=== PATIENT | female | born 1955 | race Asian ===

== ENCOUNTER 2019-01-21 13:46 | Emergency (ER) | payer OTHER ==
[~2019-01-21] VITALS: Ht 167.6 cm; Wt 60.3 kg
[2019-01-21 16:35] VITALS: BP 104/72
== END 2019-01-21 16:35 | disposition home or self-care (01) ==
LOC: ED 13:46
DX: R51 Headache (principal); F41.9 Anxiety disorder, unspecified; E78.5 Hyperlipidemia, unspecified; Z90.89 Acquired absence of other organs; Z98.890 Other specified postprocedural states
CPT/HCPCS: J1885; J2060; J2550; J7030

== ENCOUNTER 2019-01-22 07:25 | Inpatient (IN) | payer OTHER ==
[~2019-01-22] VITALS: Ht 162.6 cm; Wt 65.2 kg
[2019-01-22 08:14] LABS: BASOPHIL % 0.4 % (0-2); PLATELET COUNT 151 x10^3mcL (130-400); RED CELL DISTRIBUTION WIDTH 14.3 % (11.5-14.5)
[2019-01-22 08:22] LABS: CALCIUM 8.4 mg/dL (8.5-10.1); CARBON DIOXIDE 23.4 mmol/L (21-32); CHLORIDE SERUM 99 mmol/L (98-107); CREATININE SERUM 0.9 mg/dL (0.6-1.0); GFR1 > 60 mL/min; GLUCOSE SERUM 123 mg/dL (74-106); POTASSIUM SERUM 3.8 mmol/L (3.5-5.1); SODIUM SERUM 132 mmol/L (136-145)
[2019-01-22 08:32] LABS: ALBUMIN 2.9 g/dL (3.4-5.0); ALKALINE PHOSPHATASE 187 U/L (46-116); ALT/SGPT 760 U/L (14-59); BILIRUBIN TOTAL 1.04 mg/dL (0.20-1.00); TOTAL PROTEIN, SERUM 6.7 g/dL (6.4-8.2)
[2019-01-22 08:33] LABS: AST/SGOT 1292 U/L (15-37)
[2019-01-22 10:35] LABS: TOTAL PROTEIN CSF 38.1 mg/dL (15-45)
[2019-01-22 12:42] LABS: APPEARANCE CSF CLEAR; COLOR CSF COLORLESS
[2019-01-22 12:43] LABS: RBC CSF 0 /cumm (0)
[2019-01-22 13:01] LABS: COLOR CSF PINK
[2019-01-22 13:02] LABS: APPEARANCE CSF CLEAR
[2019-01-22 13:03] LABS: RBC CSF 0 /cumm (0); WBC CSF 90 /cumm (0-5)
[2019-01-22 13:07] LABS: WBC CSF 0 /cumm (0-5)
[2019-01-22 14:08] LABS: LYMPHOCYTE CSF 52 % (40-80); MONOCYTE CSF 28 %
[2019-01-22 14:15] LABS: LYMPHOCYTE CSF 52 % (40-80); MONOCYTE CSF 28 %
[2019-01-22 15:11] LABS: CHOLESTEROL/HDL RATIO 2.6; PHOSPHOROUS 1.9 mg/dL (2.5-4.9)
[2019-01-22 15:15] VITALS: BP 94/43
[2019-01-22 19:55] VITALS: BP 99/44
[2019-01-22 21:05] VITALS: BP 96/47
[2019-01-22 22:13] VITALS: BP 84/42
[2019-01-22 23:00] VITALS: BP 86/56
[2019-01-23 03:08] VITALS: BP 115/71
[2019-01-23 05:14] LABS: BASOPHIL % 0.2 % (0-2); PLATELET COUNT 146 x10^3mcL (130-400)
[2019-01-23 05:27] LABS: RED CELL DISTRIBUTION WIDTH 14.6 % (11.5-14.5)
[2019-01-23 05:35] LABS: CALCIUM 8.1 mg/dL (8.5-10.1); CARBON DIOXIDE 22.3 mmol/L (21-32); CHLORIDE SERUM 105 mmol/L (98-107); CREATININE SERUM 0.7 mg/dL (0.6-1.0); GFR1 > 60 mL/min; GLUCOSE SERUM 114 mg/dL (74-106); MAGNESIUM 1.5 mg/dL (1.8-2.4); PHOSPHOROUS 2.1 mg/dL (2.5-4.9); POTASSIUM SERUM 3.5 mmol/L (3.5-5.1); SODIUM SERUM 136 mmol/L (136-145)
[2019-01-23 07:55] VITALS: BP 116/56
[2019-01-23 10:44] VITALS: Ht 162.6 cm; Wt 65.2 kg
[2019-01-23 10:58] VITALS: BP 116/56
[2019-01-23 11:15] VITALS: BP 102/59
[2019-01-23 11:57] LABS: T3 TOTAL 0.8 ng/mL
[2019-01-23 12:55] LABS: FREE T4 1.29 ng/dL (0.76-1.46); FREE THYROXINE INDEX 2.8 ug/dL (1.4-4.5); T4(THYROXINE) 7.9 ug/dL (4.7-13.3)
[2019-01-23 13:48] VITALS: BP 104/49
== END 2019-01-23 15:15 | disposition short-term general hospital (02) | DRG 75 ==
LOC: ED 07:25 → DU 14:05 → IC 14:05 → DU 15:06 → IC 22:35
PROVIDERS: Emergency Medicine; Internal Medicine; ADMIT General Practice
PROC: 009U3ZX Drainage of Spinal Canal, Percutaneous Approach, Diagnostic (ICD-10-PCS; principal; 2019-01-22)
DX: A87.9 Viral meningitis, unspecified (principal); J18.9 Pneumonia, unspecified organism; E87.1 Hypo-osmolality and hyponatremia; E44.0 Moderate protein-calorie malnutrition; D18.03 Hemangioma of intra-abdominal structures; I95.9 Hypotension, unspecified; E83.39 Other disorders of phosphorus metabolism; E83.51 Hypocalcemia; E83.42 Hypomagnesemia; E78.5 Hyperlipidemia, unspecified; R74.0 Nonspecific elevation of levels of transaminase and lactic acid dehydrogenase [LDH]; D64.9 Anemia, unspecified; Z68.22 Body mass index [BMI] 22.0-22.9, adult
CPT/HCPCS: 84439; 86788; 86789; 94150; G0378; J0456; J0696; J1885; J2001; J2270; J2405; J3370; J3490; J7030; Q0092